=== PATIENT | female | born 1990 | race African-American/Black ===

== ENCOUNTER 2018-02-13 15:54 | Emergency (ER) | payer BC ==
[2018-02-13] MEDS ORDERED: NACL 0.9% 1000 ML 1,000 ML IV ONE (16:33)
[2018-02-13] MEDS ORDERED: ZOFRAN IV ONE (16:34)
[2018-02-13 17:08] LABS: Basophils % (Auto) 0.4 % (0.0-1.8); Eosinophils # (Auto) 0.1 K/mm3 (0.0-0.4); Eosinophils % (Auto) 0.7 % (0.0-4.3); Hematocrit 33.4 % (30.3-42.9); Hemoglobin 11.4 gm/dl (10.1-14.3); Lymphocytes # (Auto) 1.8 K/mm3 (1.2-5.4); Lymphocytes % (Auto) 15.3 % (13.4-35.0); Mean Corpuscular HGB Conc 34 % (30-34); Mean Corpuscular Hemoglobin 30 pg (28-32); Mean Corpuscular Volume 88 fl (79-97); Monocytes # (Auto) 0.6 K/mm3 (0.0-0.8); Monocytes % (Auto) 5.1 % (0.0-7.3); Platelet Count 221 K/mm3 (140-440); Red Blood Count 3.81 M/mm3 (3.65-5.03); Red Cell Distribution Width 13.6 % (13.2-15.2)
[2018-02-13 17:18] LABS: INR 0.93 (0.87-1.13)
[2018-02-13 17:19] LABS: Partial Thromboplastin Time 27.5 Sec. (24.2-36.6)
[2018-02-13 17:39] LABS: Alanine Aminotransferase 14 units/L (7-56); Albumin 3.6 g/dL (3.9-5); BUN/Creatinine Ratio 20; Blood Urea Nitrogen 6 mg/dL (7-17); Calcium 8.5 mg/dL (8.4-10.2); Hemolysis Index 0
[2018-02-13 17:42] LABS: Bilirubin,Direct < 0.2 mg/dL (0-0.2)
[2018-02-13 17:46] LABS: Bacteria,Urine 1+ /HPF (Negative); Bilirubin,Urine NEG (Negative); Blood,Urine NEG (Negative); Color,Urine Straw (Yellow); Protein,Urine <15 mg/dL mg/dL (Negative); Urobilinogen,Urine < 2.0 mg/dL (<2.0); WBC,Urine < 1.0 /HPF (0.0-6.0)
[2018-02-13 17:48] LABS: HCG Qualitative,Urine Positive (Negative)
[2018-02-13 17:54] LABS: Free T4 (Free Thyroxine) 0.96 ng/dL (0.76-1.46)
--- NOTE | 2018-02-13 18:29 | Emergency Department Report ---
ED General Adult HPI - General Stated complaint: WEAKNESS Time Seen by Provider: 02/13/18 16:29 Source: patient, EMS Mode of arrival: Stretcher Limitations: Physical Limitation - History of Present Illness Initial comments: This is a 27-year-old female who states that she felt as if she was going to pass out. She did not fall. She did not actually have a syncopal episode. She did not complain of any chest or abdominal pain. She told me that she felt weak all over. Apparently she had to be carried to the bathroom by her at home. EMS was summoned to the scene and she was transported. Paramedics noted that she had ample movement of her upper and lower extremities. Apparently on arrival the again carried her to the bathroom without the assistance of staff. When I saw her she was placed in the gurney. She had both her legs in flexion and was holding them up spontaneously and against gravity. The nursing staff was wondering if she sustained some kind of neck trauma. However, there was no evidence of any focal weakness of the upper and lower extremity. The patient denied any fall or any trauma. The patient did state that she has been having moderate headaches in a hatband type distribution for the past 2 days. She has had headaches like this before. There was no acute onset/thunderclap type headache. She stated to me that she wasn't under any stress. However she told the nursing staff that she lives in a home with "10 other people". She states that she is going to the [facility] OB clinic. She has recently complained of generalized weakness there. She states that she had thyroid tests done and has an appointment for follow-up on the results this coming week. She states that she had an ultrasound at [place] which demonstrated a 12 week gestation. The patient denies any recent fever or chills. She states that she had some nausea since she arrived. She did not have any emesis. She does not complain of any vaginal bleeding or any urinary symptoms. She denies any respiratory change. She did not complain of any sensory or motor problems of her upper or lower extremities. She denied difficulty with her speech or any sort of consistent neurological symptoms. -: Gradual Worsens with: none Associated Symptoms: denies other symptoms (as per HPI above) Treatments Prior to Arrival: none - Related Data Allergies Allergy/AdvReac Type Severity Reaction Status Date / Time No Known Allergies Allergy Unverified 02/13/18 17:41 ED Review of Systems ROS: Stated complaint: WEAKNESS Other details as noted in HPI Constitutional: weakness. denies: chills, fever Eyes: denies: eye pain, eye discharge, vision change ENT: denies: ear pain, throat pain Respiratory: denies: cough, shortness of breath, wheezing Cardiovascular: denies: chest pain, palpitations Endocrine: no symptoms reported Gastrointestinal: denies: abdominal pain, nausea, diarrhea Genitourinary: denies: urgency, dysuria, discharge Musculoskeletal: denies: back pain, joint swelling, arthralgia Skin: denies: rash, lesions Neurological: headache. denies: weakness, paresthesias Psychiatric: denies: anxiety, depression Hematological/Lymphatic: denies: easy bleeding, easy bruising ED Past Medical Hx - Past Medical History Previous Medical History?: No - Surgical History Past Surgical History?: No - Social History Smoking Status: Never Smoker Substance Use Type: None ED Physical Exam - General Limitations: No Limitations General appearance: alert, in no apparent distress - Head Head exam: Present: atraumatic, normocephalic - Eye Eye exam: Present: normal appearance, PERRL, EOMI. Absent: scleral icterus - ENT ENT exam: Present: mucous membranes moist - Neck Neck exam: Present: normal inspection, full ROM. Absent: tenderness, meningismus - Respiratory Respiratory exam: Present: normal lung sounds bilaterally. Absent: respiratory distress - Cardiovascular Cardiovascular Exam: Present: regular rate, normal rhythm. Absent: systolic murmur, diastolic murmur, rubs, gallop - GI/Abdominal GI/Abdominal exam: Present: soft, normal bowel sounds. Absent: distended, tenderness, guarding, rebound, rigid, mass, bruit, pulsatile mass, hernia - Extremities Exam Extremities exam: Present: normal inspection - Back Exam Back exam: Present: normal inspection. Absent: CVA tenderness (R), CVA tenderness (L), muscle spasm, paraspinal tenderness, vertebral tenderness - Neurological Exam Neurological exam: Present: alert, oriented X3, CN II-XII intact. Absent: motor sensory deficit - Psychiatric Psychiatric exam: Present: normal mood, flat affect - Skin Skin exam: Present: warm, dry, intact, normal color. Absent: rash ED Course Vital Signs 02/13/18 02/13/1830/18 16:18 16:30 16:31 Temperature 98.8 F Pulse Rate 97 H 100 H Respiratory 12 16 Rate Blood Pressure 116/59 121/65 O2 Sat by Pulse 99 98 99 Oximetry 02/13/18 02/13/18 02/13/18 16:46 17:00 17:15 Temperature Pulse Rate 97 H 93 H 95 H Respiratory 22 13 16 Rate Blood Pressure 116/59 127/66 117/40 O2 Sat by Pulse 98 99 98 Oximetry 02/13/18 02/13/18 02/13/18 17:30 17:46 18:00 Temperature Pulse Rate 89 93 H 97 H Respiratory 23 15 15 Rate Blood Pressure 118/53 116/60 117/54 O2 Sat by Pulse 98 98 99 Oximetry - Reevaluation(s) Reevaluation #1: Patient was given IV fluid. She did not complain of severe. She spontaneously walked to the restroom. The patient has completed an ultrasound which the tech stated showed a normal viable 12 week . I have explained to the patient and her the risks and benefits of CT examination for her headaches. Patient states that her headache is persistent. Therefore we will go ahead with CT scan at this point. 02/13/18 19:14 02/13/18 19:24 The nurse just informed me that the patient and have declined CT evaluation. She will be discharged. She is advised to come back to the emergency department should she change her mind and certainly if there is any acute change or problem. She should see her OB doctor for follow-up as soon as possible. I have already discussed the risks and benefits of CT imaging. For her persistent headache, I have recommended it. Therefore declining the exam she has no further indications for other workup at this time. She is stable for discharge. Certainly, the headache was not severe while in the emergency department. She really did not request any analgesia. 02/13/18 19:26 ED Medical Decision Making - Lab Data Result diagrams: 02/13/18 16:47 02/13/18 16:47 Critical care attestation.: If time is entered above; I have spent that time in minutes in the direct care of this critically ill patient, excluding procedure time. ED Disposition Clinical Impression: Intrauterine , Generalized weakness Cephalalgia Qualifiers: Headache type: unspecified Headache chronicity pattern: chronic headache Intractability: not intractable Qualified Code(s): R51 - Headache Disposition: DC-01 TO HOME OR SELFCARE Is pt being admited?: No Does the pt Need Aspirin: No Condition: Stable Instructions: Acute Headache (ED), (ED) Additional Instructions: I have already recommended a CT scan. I would certainly highly recommend a CT scan particularly if this headache persists or worsens. You may return to this emergency department at any point. Certainly return if you desire CT examination. I would recommend you see your OB doctor as soon as possible. Increase fluids. Return any acute change or problem. Referrals: PRIMARY CARE, [Primary Care Provider] - 3-5 Days usual pathology secretary/transcriptionistChristian [Other] - [facility] Time of Disposition: 19:27
--- NOTE | 2018-02-13 19:26 | Ultrasound Report ---
FINAL REPORT PROCEDURE: Obstetrical ultrasound. TECHNIQUE: Real-time transabdominal sonography of the uterus, placenta, amniotic fluid, adnexa, and fetus was performed with image documentation. Measurements were obtained to determine age/size. M-mode Doppler was used to document heartbeat. CPT 83489 HISTORY: Twelve week , near syncope. Vaginal spotting. COMPARISON: No prior studies are available for comparison. FINDINGS: The uterus measures 12.2 centimeters x 8.5 centimeters x 9.4 centimeters. The myometrium is unremarkable. There is an intrauterine gestational sac. A pole is present. Cardiac activity is documented at 175 beats per minute. The crown-rump length measurement is 5.5 centimeters. This indicates a menstrual age of 12 weeks 0 days. The technologist did not calculate an estimated date of confinement. Both ovaries appear normal in size. IMPRESSION: Viable intrauterine with a menstrual age of 12 weeks 0 days.
[2018-02-13 19:57] VITALS: BP 103/52
== END 2018-02-13 19:56 | disposition home or self-care (01) ==
LOC: ED 15:54
DX: O26.891 Other specified pregnancy related conditions, first trimester (principal); R53.1 Weakness; R51 Headache; Z3A.12 12 weeks gestation of pregnancy
CPT/HCPCS: 36415; 76801; 80048; 80074; 81001; 81025; 83735; 84439; 84443; 84702; 85025; 85610; 85730; 96374; 99284; J2405; J7030

== ENCOUNTER 2019-06-23 00:22 | Emergency (ER) | payer BC ==
[2019-06-23 00:31] VITALS: BP 110/72
[2019-06-23 00:54] LABS: Basophils # (Auto) 0.1 K/mm3 (0.0-0.1); Basophils % (Auto) 0.8 % (0.0-1.8); Eosinophils # (Auto) 0.1 K/mm3 (0.0-0.4); Hemoglobin 12.8 gm/dl (10.1-14.3); Lymphocytes # (Auto) 3.2 K/mm3 (1.2-5.4); Lymphocytes % (Auto) 25.7 % (13.4-35.0); Mean Corpuscular HGB Conc 33 % (30-34); Mean Corpuscular Volume 87 fl (79-97); Monocytes # (Auto) 0.6 K/mm3 (0.0-0.8); Monocytes % (Auto) 4.6 % (0.0-7.3); Platelet Count 245 K/mm3 (140-440); Red Blood Count 4.46 M/mm3 (3.65-5.03)
--- NOTE | 2019-06-23 03:01 | Ultrasound Report ---
ULTRASOUND OBSTETRIC INDICATION / CLINICAL INFORMATION: preg and vaginal bleeding. Clinical Gestational Age (GA): 9 weeks 1 day TECHNIQUE: Transabdominal. COMPARISON: None available. FINDINGS: GESTATIONAL SAC: Well-defined oval shape and intrauterine in location. YOLK SAC: No significant abnormality. EMBRYO/FETUS: No significant abnormality. - [place]-Rump Length = 0.68 cm = 6 weeks, 4 day(s). - Heart Rate, beats per minute (if present) = 152 ADNEXA: No significant abnormality. FREE FLUID: None. ADDITIONAL FINDINGS: None. IMPRESSION: 1. Single, living intrauterine with estimated sonographic age of 6 weeks, 4 day(s). 2. No acute sonographic abnormality. Signer Name: Gregg Alcala MD Signed: 06/23/2019 2:56 AM Workstation Name: [id number]
[2019-06-23 04:32] LABS: Bacteria,Urine 1+ /HPF (Negative); Bilirubin,Urine NEG (Negative); Blood,Urine SM (Negative); Color,Urine Yellow (Yellow); Mucus,Urine FEW /HPF; Protein,Urine <15 mg/dL mg/dL (Negative); Urobilinogen,Urine < 2.0 mg/dL (<2.0)
--- NOTE | 2019-06-23 04:59 | Emergency Department Report ---
ED HPI - General Chief complaint: Vaginal Bleeding Stated complaint: 13WKS/DIZZINESS/ABD PAIN/BLEEDIN Time Seen by Provider: 06/23/19 03:43 Source: patient Mode of arrival: Ambulatory Limitations: No Limitations - History of Present Illness Initial comments: Patient is a 28-year-old [place] female who is presenting with lower abdominal discomfort. Patient states she is approximately 8 weeks and is complaining of some crampiness in the suprapubic region. Patient initially noticed some spotting when wiping. She denies heavy vaginal bleeding or clots. She has some mild dizziness associated with the discomfort. Patient does not have ultrasound as of yet. She denies fevers chills cough cold or congestion. - Related Data Previous Rx's Medication Instructions Recorded Last Taken Type Nitrofurantoin Early/M-Cryst 100 mg PO Q12HR #14 capsule 06/23/19 Unknown Rx [Macrobid CAP] Allergies Allergy/AdvReac Type Severity Reaction Status Date / Time No Known Allergies Allergy Unverified 02/13/18 17:41 ED Review of Systems ROS: Stated complaint: 13WKS/DIZZINESS/ABD PAIN/BLEEDIN Other details as noted in HPI Comment: All other systems reviewed and negative ED Past Medical Hx - Past Medical History Previous Medical History?: No - Surgical History Past Surgical History?: No - Social History Smoking Status: Never Smoker Substance Use Type: None - Medications Home Medications: Home Medications Medication Instructions Recorded Confirmed Last Taken Type Nitrofurantoin Early/M-Cryst 100 mg PO Q12HR #14 capsule 06/23/19 Unknown Rx [Macrobid CAP] ED Physical Exam - General Limitations: No Limitations General appearance: alert, in no apparent distress - Head Head exam: Present: atraumatic, normocephalic - Eye Eye exam: Present: normal appearance - ENT ENT exam: Present: mucous membranes moist - Neck Neck exam: Present: normal inspection - Respiratory Respiratory exam: Present: normal lung sounds bilaterally. Absent: respiratory distress, wheezes, rales, rhonchi - Cardiovascular Cardiovascular Exam: Present: regular rate, normal rhythm. Absent: systolic murmur, diastolic murmur, rubs, gallop - GI/Abdominal GI/Abdominal exam: Present: soft, tenderness (suprapubic tenderness which is mild), normal bowel sounds. Absent: distended, guarding, rebound, rigid - Extremities Exam Extremities exam: Present: normal inspection - Back Exam Back exam: Present: normal inspection - Neurological Exam Neurological exam: Present: alert, oriented X3 - Psychiatric Psychiatric exam: Present: normal affect, normal mood - Skin Skin exam: Present: warm, dry, intact, normal color. Absent: rash ED Course Vital Signs 06/23/19 00:25 Temperature 97.7 F Pulse Rate 98 H Respiratory 18 Rate Blood Pressure 110/72 O2 Sat by Pulse 98 Oximetry ED Medical Decision Making - Lab Data Result diagrams: 06/23/19 00:33 Lab Results 06/23/19 06/23/19 06/23/19 Range/Units 00:33 00:33 00:33 WBC 12.6 H (4.5-11.0) K/mm3 RBC 4.46 (3.65-5.03) M/mm3 Hgb 12.8 (10.1-14.3) gm/dl Hct 39.0 (30.3-42.9) % MCV 87 (79-97) fl MCH 29 (28-32) pg MCHC 33 (30-34) % RDW 14.0 (13.2-15.2) % Plt Count 245 (140-440) K/mm3 Lymph % (Auto) 25.7 (13.4-35.0) % Early % (Auto) 4.6 (0.0-7.3) % Eos % (Auto) 1.0 (0.0-4.3) % Baso % (Auto) 0.8 (0.0-1.8) % Lymph # 3.2 (1.2-5.4) K/mm3 Early # 0.6 (0.0-0.8) K/mm3 Eos # 0.1 (0.0-0.4) K/mm3 Baso # 0.1 (0.0-0.1) K/mm3 Seg Neutrophils % 67.9 (40.0-70.0) % Seg Neutrophils # 8.6 H (1.8-7.7) K/mm3 HCG, Quant 29778 H (0-4) mIU/mL Urine Color (Yellow) Urine Turbidity (Clear) Urine pH (5.0-7.0) Ur Specific [place] (1.003-1.030) Urine Protein (Negative) mg/dL Urine Glucose (UA) (Negative) mg/dL Urine Ketones (Negative) mg/dL Urine Blood (Negative) Urine Nitrite (Negative) Urine Bilirubin (Negative) Urine Urobilinogen (<2.0) mg/dL Ur Leukocyte Esterase (Negative) Urine WBC (Auto) (0.0-6.0) /HPF Urine RBC (Auto) (0.0-6.0) /HPF U Epithel Cells (Auto) (0-13.0) /HPF Urine Bacteria (Auto) (Negative) /HPF Urine Mucus /HPF Blood Type AB POSITIVE 06/23/19 Range/Units 04:09 WBC (4.5-11.0) K/mm3 RBC (3.65-5.03) M/mm3 Hgb (10.1-14.3) gm/dl Hct (30.3-42.9) % MCV (79-97) fl MCH (28-32) pg MCHC (30-34) % RDW (13.2-15.2) % Plt Count (140-440) K/mm3 Lymph % (Auto) (13.4-35.0) % Early % (Auto) (0.0-7.3) % Eos % (Auto) (0.0-4.3) % Baso % (Auto) (0.0-1.8) % Lymph # (1.2-5.4) K/mm3 Early # (0.0-0.8) K/mm3 Eos # (0.0-0.4) K/mm3 Baso # (0.0-0.1) K/mm3 Seg Neutrophils % (40.0-70.0) % Seg Neutrophils # (1.8-7.7) K/mm3 HCG, Quant (0-4) mIU/mL Urine Color Yellow (Yellow) Urine Turbidity Clear (Clear) Urine pH 5.0 (5.0-7.0) Ur Specific [place] 1.009 (1.003-1.030) Urine Protein <15 mg/dl (Negative) mg/dL Urine Glucose (UA) Neg (Negative) mg/dL Urine Ketones Neg (Negative) mg/dL Urine Blood Sm (Negative) Urine Nitrite Neg (Negative) Urine Bilirubin Neg (Negative) Urine Urobilinogen < 2.0 (<2.0) mg/dL Ur Leukocyte Esterase Sm (Negative) Urine WBC (Auto) 5.0 (0.0-6.0) /HPF Urine RBC (Auto) 4.0 (0.0-6.0) /HPF U Epithel Cells (Auto) 1.0 (0-13.0) /HPF Urine Bacteria (Auto) 1+ (Negative) /HPF Urine Mucus Few /HPF Blood Type - Radiology Data ULTRASOUND OBSTETRIC INDICATION / CLINICAL INFORMATION: preg and vaginal bleeding. Clinical Gestational Age (GA): 9 weeks 1 day TECHNIQUE: Transabdominal. COMPARISON: None available. FINDINGS: GESTATIONAL SAC: Well- defined oval shape and intrauterine in location. YOLK SAC: No significant abnormality. EMBRYO/FETUS: No significant abnormality. - [place]-Rump Length = 0.68 cm = 6 weeks, 4 day(s). - Heart Rate, beats per minute (if present) = 152 ADNEXA: No significant abnormality. FREE FLUID: None. ADDITIONAL FINDINGS: None. IMPRESSION: 1. Single, living intrauterine with estimated sonographic age of 6 weeks, 4 day(s). 2. No acute sonographic abnormality. - Medical Decision Making Patient with evidence of a mild UTI. Patient to be started on Macrobid and she can continue Tylenol for pain will be discharged home. Critical care attestation.: If time is entered above; I have spent that time in minutes in the direct care of this critically ill patient, excluding procedure time. ED Disposition Clinical Impression: UTI in Qualifiers: Trimester: first trimester Qualified Code(s): O23.41 - Unspecified infection of urinary tract in , first trimester Spotting affecting Qualifiers: Trimester: first trimester Qualified Code(s): O26.851 - Spotting complicating , first trimester Disposition: DC-01 TO HOME OR SELFCARE Is pt being admited?: No Does the pt Need Aspirin: No Condition: Stable Instructions: Urinary Tract Infection in Women (ED) Additional Instructions: Please take Tylenol for pain as needed Referrals: PRIMARY MD ANNAMARIA [Primary Care Provider] - 3-5 Days Time of Disposition: 04:58
== END 2019-06-23 05:39 | disposition home or self-care (01) ==
LOC: ED 00:22
DX: O23.41 Unspecified infection of urinary tract in pregnancy, first trimester (principal); O26.851 Spotting complicating pregnancy, first trimester; Z3A.08 8 weeks gestation of pregnancy
CPT/HCPCS: 36415; 76801; 81001; 84702; 85025; 86900; 86901